=== PATIENT | male | born 1955 | race Caucasian/White ===

== ENCOUNTER 2017-01-27 10:01 | Emergency (ER) | payer OTHER, SELFPAY ==
[~2017-01-27] VITALS: Ht 175.3 cm; Wt 102.3 kg
[2017-01-27 10:01] VITALS: BP 132/79
[2017-01-27] MEDS ORDERED: LISI2.5T3 PO (10:18)
[2017-01-27] MEDS ORDERED: BUSP10TA PO (10:18)
[2017-01-27] MEDS ORDERED: ASPI81TA85 PO (10:18)
[2017-01-27] MEDS ORDERED: DOXY100T PO (10:18)
[2017-01-27] MEDS ORDERED: GLIM4TAB PO (10:19)
--- NOTE | 2017-01-27 10:54 | REP ---
Clinical: Trauma. Technique: Internal rotation, external rotation, and Y view. Findings: Mild age-related cortical irregularity at the acromioclavicular joint is appreciated. There is no evidence for acute fracture or dislocation. Acromioclavicular and glenohumeral joints are intact. A radiodense foreign body is identified in the deltoid likely chronic. Impression: Age-related degenerative changes. Small intramuscular foreign body likely chronic. No acute fracture or dislocation. Signed by Kingsley Soto MD 01/27/2017 10:44 A
[2017-01-27] MEDS ORDERED: ACET30TAB PO (11:41)
== END 2017-01-27 11:51 | disposition home or self-care (01) ==
LOC: M ED 10:01
DX: S46.912A Strain of unspecified muscle, fascia and tendon at shoulder and upper arm level, left arm, initial encounter (principal); X50.0XXA Overexertion from strenuous movement or load, initial encounter; Y92.099 Unspecified place in other non-institutional residence as the place of occurrence of the external cause; Y93.89 Activity, other specified; Y99.9 Unspecified external cause status

== ENCOUNTER → 2017-04-24 | Outpatient (CLI) | payer OTHER ==
[~2017-04-24] MED LIST: ACET30TAB PO; ASPI81TA85 PO; BUSP10TA PO; DOXY100T PO; GLIM4TAB PO; LISI2.5T3 PO
--- NOTE | 2017-04-24 10:02 | REP ---
MRI LEFT SHOULDER: TECHNIQUE: Axial T2 fat sat, gradient echo, sagittal oblique T2 fat sat, coronal oblique T1, T2 fat sat. There is a complete full thickness tear of the supraspinatus tendon with the retraction of the musculotendinous junction approximately 4 cm. Moderate hypertrophic degenerative changes are seen of the acromioclavicular joint with mild downward sloping of the acromion. Acromion is type 2. Biceps tendon is within the bicipital groove. There is no Hill-Sachs deformity. Deltoid muscle demonstrates no abnormal signal. I suspect a tear at the base of the superior labrum anterior aspect to included the portion of the labrum at the biceps labral complex. The other portions of the labrum appear intact. There is no bone marrow edema or occult fracture. There is no paralabral cyst. There is a moderate joint effusion with fluid extending into the subacromial/subdeltoid bursae. IMPRESSION: Complete full thickness tear supraspinatus tendon with retraction of the musculotendinous junction approximately 4 cm. Moderate hypertrophic degenerative changes acromioclavicular joint with mild downward sloping of the acromion. There appears to be a tear at the base of the superior labrum anterior aspect to include the portion of the labrum at the biceps labral attachment. This could be confirmed with an MR arthrogram. Moderate joint effusion with fluid extending into the subacromial/subdeltoid bursae. Signed by Sae Ross MD 04/24/2017 05:32 P
== END ==
LOC: M PLARAD 07:56
PROVIDERS: ATTEND Internal Medicine
DX: M25.512 Pain in left shoulder (principal)

== ENCOUNTER → 2017-12-13 | Outpatient (REF) | payer OTHER ==
[2017-12-13 12:12] LABS: INR 0.91; PROTHROMBIN TIME 12.3 SECONDS (12.4-14.5)
[2017-12-13 12:14] LABS: ANION GAP 5 MEQ/L (8-16); BLOOD UREA NITROGEN 24 MG/DL (7-18); CALCIUM LEVEL 9.6 MG/DL (8.8-10.2); CARBON DIOXIDE LEVEL 29 MEQ/L (21-32); CHLORIDE LEVEL 103 MEQ/L (98-107); CREATININE FOR GFR 1.02 MG/DL (0.70-1.30); GLOMERULAR FILTRATION RATE > 60.0 (>49); GLUCOSE, FASTING 214 MG/DL (70-100); POTASSIUM SERUM 4.3 MEQ/L (3.5-5.1); SODIUM LEVEL 137 MEQ/L (136-145)
== END ==
LOC: M SFHCPLAZ 09:11
DX: Z01.818 Encounter for other preprocedural examination (principal)
CPT/HCPCS: 80048

== ENCOUNTER → 2018-07-13 | Outpatient (CLI) | payer OTHER ==
[~2018-07-13] MED LIST changes: +DICL50TAB PO; +FLORCHW2 PO; -LISI2.5T3 PO; +LISI2.5T5 PO; +METF500T13 PO; +MYSO50TA5 PO; +TYLE1TAB5 PO
[2018-07-13 10:33] LABS: HEMATOCRIT 47.2 % (42.0-52.0); HEMOGLOBIN 16.7 g/dl (13.5-17.5); MEAN CORPUSCULAR HEMOGLOBIN 32.6 pg (27.0-33.0); MEAN CORPUSCULAR HGB CONC 35.4 g/dl (32.0-36.5); MEAN CORPUSCULAR VOLUME 92.2 fl (80.0-96.0); PLATELET COUNT, AUTOMATED 150 10^3/uL (150-450); RED BLOOD COUNT 5.12 10^6/uL (4.30-6.10); WHITE BLOOD COUNT 4.4 10^3/uL (4.0-10.0)
[2018-07-13 10:43] LABS: INR 0.97
[2018-07-13 10:58] LABS: ERYTHROCYTE SEDIMENTATION RATE 5 mm/hr (0-20)
--- NOTE | 2018-07-13 11:30 | REP ---
CHEST X-RAY: TWO VIEWS. HISTORY: Right knee arthritis. FINDINGS: There is blunting of the right lateral and posterior pleural angles suggesting pleuroparenchymal scarring. No free pleural effusion is evident. Lungs are otherwise well inflated and clear. Heart is not enlarged. The aorta slightly tortuous. There are mild degenerative changes in the thoracic spine. There are clips in right upper quadrant of the abdomen consistent with previous cholecystectomy. There are two orthopedic anchors in the humeral head on the left side and, there is advanced glenohumeral osteoarthritis in the right shoulder. IMPRESSION: Chronic-appearing blunting of the pleural angles on the right. Otherwise no acute disease. Electronically Signed by Oli Crenshaw MD 07/13/2018 12:31 P
[2018-07-13 11:55] LABS: ALBUMIN 4.2 GM/DL (3.2-5.2); ALT/SGPT 37 U/L (12-78); BILIRUBIN,TOTAL 0.7 MG/DL (0.2-1.0); BLOOD UREA NITROGEN 29 MG/DL (7-18); CALCIUM LEVEL 9.7 MG/DL (8.8-10.2); CARBON DIOXIDE LEVEL 29 MEQ/L (21-32); CHLORIDE LEVEL 105 MEQ/L (98-107); CREATININE FOR GFR 0.93 MG/DL (0.70-1.30); GLOMERULAR FILTRATION RATE > 60.0 (>49); GLUCOSE, FASTING 230 MG/DL (70-100); POTASSIUM SERUM 4.6 MEQ/L (3.5-5.1); SODIUM LEVEL 140 MEQ/L (136-145); TOTAL PROTEIN 7.5 GM/DL (6.4-8.2)
--- NOTE | 2018-07-14 00:15 | ECGEPIP ---
Stationary ECG Study [facility] Test Date: 2018-07-13 Pat Name: CASSIE MOE Department: Room: - Gender: M Automobile Technician: GABI : 1955 Requested By: Fatou Montes PA-C, LAC Order Number: [id number] Reading MD: Sreekanth Simms Measurements Intervals [place] Rate: 54 P: 39 NC: 169 QRS: -16 QRSD: 102 T: 41 QT: 389 QTc: 370 Interpretive Statements SINUS BRADYCARDIA CONSIDER PRIOR INFERIOR WALL INFARCT NO PRIOR TRACING Electronically Signed On 07-14-2018 0:14:56 EST by Sreekanth Simms
== END ==
LOC: M LAB 10:05 → MERGE 10:05
PROVIDERS: ATTEND Physician Assistant
DX: Z01.818 Encounter for other preprocedural examination (principal); M17.11 Unilateral primary osteoarthritis, right knee

== ENCOUNTER 2018-08-15 10:14 | Inpatient (IN) | payer OTHER ==
--- NOTE | 2018-07-27 22:14 | HPE ---
DATE OF ADMISSION: 08/15/2018 CHIEF COMPLAINT: Right knee pain. HISTORY OF PRESENT ILLNESS: Mr. Velez is a pleasant 63-year-old male with progressively worsening right knee pain and stiffness. He has failed to improve with conservative treatment. He has elected for surgery for his continued symptoms. He has pain with weightbearing activities and his activities of daily living. X-rays of his knee are notable for advanced osteoarthritis of the right knee joint. He has consented for a right total knee arthroplasty by Dr. Ian Fleming. Medical optimization was done by Fatou Montes . ALLERGIES: None. CURRENT MEDICATIONS: - baby aspirin once a day - buspirone 10 mg twice a day - diclofenac sodium 75 mg one twice a day - Januvia one by mouth every day - lisinopril 2.5 mg by mouth at bedtime - metformin 1000 mg one tablet by mouth twice a day - Tylenol PM Extra Strength 500/25 at bedtime - vitamin D 1000 units a day PAST MEDICAL HISTORY: Includes: 1. Diabetes. 2. Hypertension. PAST SURGICAL HISTORY Two right knee arthroscopies. 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 Does not smoke. Does not drink alcohol. FAMILY HISTORY: Noncontributory. REVIEW OF SYSTEMS: This patient denies chest pain, heart palpitations, cough, wheezing, difficulty breathing, and shortness of breath. He denies abdominal pain, nausea, vomiting, diarrhea, or constipation. He denies recent upper respiratory infection or urinary tract infection symptoms. He does complain of persistent pain in the right knee and pain with weightbearing activities in the right knee. PHYSICAL EXAMINATION: GENERAL: He is well-nourished, well-developed in no acute distress, alert male patient. He walks with a moderate limp. There is significant limp favoring the right lower extremity, and he uses bilateral crutches. VITAL SIGNS: He is 69-3/4 inches tall, weighs 219 pounds with a temperature of 97.6, blood pressure 132/64, respirations of 18, pulse of 52. NECK: Supple without adenopathy or jugular venous distension. There were no carotid bruits appreciated. LUNGS: Clear to auscultation without rales or wheeze. HEART: Regular rate and rhythm. ABDOMEN: Bowel sounds were present. EXTREMITIES: Examination of the knee revealed intact skin. He had decreased range of motion secondary to pain and stiffness. The limb was neurovascularly intact. LABORATORY DATA: Protime 13.0, INR 0.97. Chest x-ray: Chronic-appearing blunting of the pleural angles on the right, otherwise no acute disease. EKG showed sinus bradycardia at 54 beats per minute. CBC was within normal limits. Sedimentation rate was 5. Glucose 230, BUN 29, creatinine 0.93, sodium 140, potassium 4.6. IMPRESSION: Symptomatic osteoarthritis of the right knee joint. PLAN: Consented for a right total knee arthroplasty by Dr. Ian Fleming.
[~2018-08-15] VITALS: Ht 175.3 cm; Wt 95.7 kg
[~2018-08-15 10:14] MED LIST changes: +ACETAMINOPHEN 500 MG TAB PO ONE; +BUPIVACAINE HCL 0.25% 10 ML VIAL As Ordered ONE; +BUPIVACAINE LIPOSOME/PF 1.3% 20ML VIAL (13.3MG/ML)(EXPAREL)(C9290 PER1MG) As Ordered ONE; +EPINEPHrine INJ 1 MG/ML 1ML AMP As Ordered ONE; +LIDOCAINE 1% MDV 20ML VIAL SQ PRN; +LR 1,000 ML IV ONE; +TRANEXAMIC ACID 100 MG/ML 10ML VIAL As Ordered ONE; +ceFAZolin 1GM INJ (J0690 PER 500MG) As Ordered ONE
[2018-08-15] MEDS ORDERED: fentaNYL 100 MCG/2 ML INJECTION (J3010) As Ordered ONE ×2 (13:01→14:43)
[2018-08-15] MEDS ORDERED: MIDAZOLAM INJ 2 MG/2 ML VIAL (J2250) As Ordered ONE (13:01)
[2018-08-15] MEDS ORDERED: PROPOFOL 200 MG/20 ML VIAL As Ordered ONE ×4 (13:37→15:31)
[2018-08-15] MEDS ORDERED: LIDOCAINE 2% INJ 100 MG/5 ML SYRINGE As Ordered ONE (13:37)
[2018-08-15] MEDS ORDERED: LIDOCAINE 2% INJ 100 MG/5 ML SDV (FOR ANES.) As Ordered ONE (13:39)
[2018-08-15] MEDS ORDERED: MIDAZOLAM INJ 2 MG/2 ML VIAL (J2250) IV ONE (14:00)
[2018-08-15] MEDS ORDERED: fentaNYL 100 MCG/2 ML INJECTION (J3010) IV ONE (14:00)
[2018-08-15] MEDS ORDERED: ONDANSETRON 4MG/2ML VIAL (J2405) As Ordered ONE (14:46)
[2018-08-15] MEDS ORDERED: ROPIvacaine 0.5% 30 ML INJECTION (J2795 PER 1MG) ONE (14:49)
[2018-08-15] MEDS ORDERED: LIDOCAINE 1% MDV 20ML VIAL ONE (14:49)
[2018-08-15] MEDS ORDERED: dexameTHASONE 10 MG/1 ML VIAL PRES.FREE (J1100) ONE (14:49)
[2018-08-15] MEDS ORDERED: MORPHINE 1MG/ML IN 0.9% NACL 100ML IV BAG As Ordered ONE (15:42)
[2018-08-15] MEDS ORDERED: ONDANSETRON 4MG/2ML VIAL (J2405) IV PRN ×2 (16:00→16:15)
[2018-08-15] MEDS ORDERED: NALBUPHINE HCL 10 MG/ML AMP (J2300) IV PRN (16:00)
[2018-08-15] MEDS ORDERED: MORPHINE 1MG/ML IN 0.9% NACL 100ML IV BAG IV PRN (16:00)
[2018-08-15] MEDS ORDERED: diphenhydrAMINE INJ 50MG/ML VIAL (J1200) IV PRN (16:00)
[2018-08-15] MEDS ORDERED: NALOXONE INJ 0.4 MG/1 ML VIAL (J2310) IV PRN (16:00)
[2018-08-15] MEDS ORDERED: EPIDURAL/PCA KEYS XX PRN (16:00)
[2018-08-15] MEDS ORDERED: PERCOCET 5MG/325MG TAB PO PRN (16:15)
[2018-08-15] MEDS ORDERED: HYDROMORPHONE HCL 0.5 MG/ 0.5 ML SYRINGE (J1170 PER 1) IV PRN (16:15)
[2018-08-15] MEDS ORDERED: fentaNYL 100 MCG/2 ML INJECTION (J3010) IV PRN (16:15)
[2018-08-15] MEDS ORDERED: LR 1,000 ML IV SCH ×2 (16:15→16:30)
[2018-08-15] MEDS ORDERED: FLEET ENEMA PR PRN (16:30)
[2018-08-15] MEDS ORDERED: ACETAMINOPHEN TAB 650MG DOSE (2X325MG) PO PRN (16:30)
--- NOTE | 2018-08-15 16:52 | REP ---
RIGHT KNEE, TWO VIEWS: HISTORY: Postop. The patient is status-post right total knee replacement. There is no acute fracture or dislocation. Subcutaneous air and surgical ce are present in the overlying soft tissue. IMPRESSION:The patient is status-post right total knee replacement. There is anatomic alignment. Electronically Signed by Edison Salinas MD 08/15/2018 04:54 P
[2018-08-15 17:15] VITALS: BP 113/64
[2018-08-15 17:45] VITALS: BP 110/67
[2018-08-15 18:45] VITALS: BP 126/69
[2018-08-15 20:00] VITALS: BP 120/73
[2018-08-15] MEDS ORDERED: PRIMIDONE 50 MG TAB PO SCH (20:45)
[2018-08-15] MEDS ORDERED: HumaLOG INSULIN (NovoLOG) PER UNIT SC SCH (21:00)
[2018-08-15] MEDS ORDERED: GLIMEPIRIDE 2 MG TAB PO SCH (21:00)
[2018-08-15] MEDS ORDERED: metFORMIN (GLUCOPHAGE) 500 MG TAB PO SCH (21:00)
[2018-08-15] MEDS ORDERED: GLUCAGON FOR INJ 1 MG VIAL (J1610) SC PRN (21:45)
[2018-08-15] MEDS ORDERED: DEXTROSE 50% 50 ML SYRINGE IV PRN (21:45)
[2018-08-15] MEDS ORDERED: GLUCOSE 4 GM CHEW TABLET PO PRN (21:45)
[2018-08-15] MEDS: busPIRone 10 MG TAB PO SCH (21:46)
[2018-08-16 06:00] VITALS: BP 117/57
--- NOTE | 2018-08-16 06:14 | CR ---
DATE OF CONSULTATION: 08/15/2018 This is a 63-year-old male with past medical history of osteoarthritis of the right knee, history of hypertension and diabetes, who presented to this hospitalization for elective right total knee replacement done by Dr. Fleming successfully today. Reason for medical consultation is postoperative medical management. Currently he has no pain. He has no chest pain. He has no shortness of breath. He has no abdominal pain. He has no nausea or vomiting or palpitations. No vertigo, headache. He tolerated his diet. PAST MEDICAL HISTORY: Hypertension. Diabetes. Status post right total knee replacement. He has a history of essential tremors. ALLERGIES: No known drug allergies. FAMILY HISTORY: Noncontributory. SOCIAL HISTORY: Patient denies tobacco, alcohol, or elicit drugs. MEDICATIONS HE TAKES AT HOME: - aspirin 81 mg orally daily - Buspirone 10 mg orally twice daily - diclofenac 50 mg orally twice daily - glimepiride 4 mg orally twice daily - lactobacillus one tablet orally twice daily - lisinopril 2.5 mg orally daily - metformin 1000 mg orally twice daily - primidone 50 mg tablets two tablets orally three times a day as needed - Tylenol Extra Strength 500/25 two tablets orally at bedtime as needed REVIEW OF SYSTEMS: Negative of all 10 major systems except what is mentioned in history of present illness. VITALS: Blood pressure 126/69, heart rate is 70 and regular, respiratory rate 16, temperature is 97, oxygen saturation is 98% on room air. Head is atraumatic, normocephalic. Neck is supple, no jugular venous distention. Lungs: Clear to auscultation. S1, S2 audible. No murmurs appreciated. Abdomen is soft, positive bowel sounds. No pedal edema. Skin intact. Clean surgical wound. Neurologic examination: Patient awake, alert, oriented times three. There are no labs to review. IMPRESSION: 1. Right total knee replacement. 2. Hypertension. 3. Diabetes. PLAN: Patient at this time is stable. There is no recommendation at this time as far as medicine is concerned. I will reconcile his medications so he can continue them and resume them. I will defer pain management to Dr. Fleming and at this time the patient is pain free. Will get morning CBC, BMP followup and will continue following this patient along side orthopedics.
[2018-08-16] MEDS ORDERED: ONDANSETRON 4 MG TAB (S0181) PO PRN (06:15)
[2018-08-16] MEDS ORDERED: PERCOCET 5MG/325MG TAB PO PRN ×2 (06:15)
[2018-08-16 06:27] LABS: HEMATOCRIT 40.8 % (42.0-52.0); HEMOGLOBIN 14.3 g/dl (13.5-17.5); MEAN CORPUSCULAR HEMOGLOBIN 31.4 pg (27.0-33.0); MEAN CORPUSCULAR VOLUME 89.5 fl (80.0-96.0); PLATELET COUNT, AUTOMATED 146 10^3/uL (150-450); RED BLOOD COUNT 4.56 10^6/uL (4.30-6.10); WHITE BLOOD COUNT 6.6 10^3/uL (4.0-10.0)
[2018-08-16 06:52] LABS: BLOOD UREA NITROGEN 17 MG/DL (7-18); CALCIUM LEVEL 8.5 MG/DL (8.8-10.2); CARBON DIOXIDE LEVEL 25 MEQ/L (21-32); CHLORIDE LEVEL 104 MEQ/L (98-107); CREATININE FOR GFR 0.84 MG/DL (0.70-1.30); GLOMERULAR FILTRATION RATE > 60.0 (>49); GLUCOSE, FASTING 189 MG/DL (70-100); POTASSIUM SERUM 3.9 MEQ/L (3.5-5.1); SODIUM LEVEL 140 MEQ/L (136-145)
[2018-08-16] MEDS ORDERED: XARE10TA PO (07:29)
[2018-08-16] MEDS ORDERED: PERC5TAB12 PO (07:29)
[2018-08-16] MEDS: HumaLOG INSULIN (NovoLOG) PER UNIT SC SCH ×2 (08:22→13:36)
[2018-08-16] MEDS: busPIRone 10 MG TAB PO SCH (08:23)
[2018-08-16 08:24] VITALS: BP 143/73
[2018-08-16] MEDS ORDERED: SENOKOT S TAB PO SCH (09:00)
[2018-08-16] MEDS ORDERED: MOM 30ML SUSPENSION UDC PO SCH (09:00)
[2018-08-16] MEDS ORDERED: FLUBLOK(EGG FREE)(QUAD)INFLUENZA VACC 0.5ML SYRINGE (90682)18YRS&OLDER IM ONE (09:00)
[2018-08-16] MEDS ORDERED: MIRALAX *UNIT DOSE* 17GM PACKET PO SCH (09:00)
[2018-08-16] MEDS ORDERED: LISINOPRIL *2.5 MG* TAB PO SCH (09:00)
[2018-08-16] MEDS ORDERED: ASPIRIN 81 MG ENTERIC TAB PO SCH (09:00)
[2018-08-16 10:00] VITALS: BP 122/68
--- NOTE | 2018-08-16 10:21 | IPNPDOC ---
Text Note Date of Service The patient was seen on 08/16/18. NOTE Subjective: Patient was seen and examined at the bedside. . Currently, he reports some lightheadedness. Denied any nausea or vomiting. Denies any abdominal pain. He has noted the ability to pass flatus. Denies chest pain, shortness of breath or palpitations. He will be working with physical therapy today Objective: Vitals (See below) General: Lying in bed, no acute distress, comfortable, AAOx3 HEENT: NC, AT CVS: RRR, +S1S2 Lungs: Fair air entry b/l, -w/r/r Abdomen: Soft, ND, NT Extremities: - Edema, - Calf tenderness, right knee in dressing Assessment and plan: Total right knee arthroplasty (POD#1) - Presented to [facility] for an elective right knee arthroplasty - Has been medically cleared for procedure by his primary care provider - Pain control, anticoagulation and physical therapy at the direction of orthopedic surgery HTN - Pressure remains well-controlled - c/w Lisinopril DM2 - c/w ISS DLP - c/w ASA - Currently not on statin Depression - c/w Buspirone Essential tremors - c/w Primidone DVT prophylaxis - Anti-coagulation as per orthopedic team VS,Mata, I+O VS, Mata, I+O Laboratory Tests 08/15/18 10:30 08/16/18 05:41 Red Blood Count 4.56, Mean Corpuscular Volume 89.5, Mean Corpuscular Hemoglobin 31.4, Mean Corpuscular Hemoglobin Concent 35.0, Red Cell Distribution Width 11.9, Calcium Level 8.5 L Vital Signs Date Time Temp Pulse Resp B/P (MAP) Pulse Ox O2 Delivery O2 Flow Rate FiO2 08/16/18 10:02 18 08/16/18 08:24 143/73 08/16/18 06:00 98.8 61 97 Room Air 08/15/18 16:48 3 I&O- Last 24 Hours up to 6 AM 08/16/18 06:00 Intake Total 3160 ml Output Total 2450 ml Balance 710 ml KESHIA SPEAR MD Aug 16, 2018 10:21
--- NOTE | 2018-08-16 11:07 | RO ---
DATE OF PROCEDURE: 08/15/2018 PREOPERATIVE DIAGNOSIS: Right knee osteoarthritis. POSTOPERATIVE DIAGNOSIS: Right knee osteoarthritis. PROCEDURE: Right total knee arthroplasty using a size 7 ATTUNE cruciate retaining femoral component with a size 6 tibial tray with a 6 mm rotating platform polyethylene insert and a 35 mm polyethylene button. All components were cemented. The prosthesis was made by [employer]. SURGEON: Gilbert Fleming MD AIDS SOCIAL WORKER: Shin Ferrer PA-C ANESTHESIA: Right femoral nerve block with a spinal. COMPLICATIONS: None. SPECIMENS: Joint surface. ESTIMATED BLOOD LOSS: 20 mL. COMPLICATIONS: None. DESCRIPTION OF OPERATION: Antibiotics were given intravenously preoperatively. A successful right femoral nerve block and then spinal anesthetic was induced. The tourniquet was placed on the right upper thigh and not inflated. The right lower extremity was then carefully prepped and draped in the usual sterile fashion. After appropriate time out, the tourniquet was inflated. A longitudinal incision was made for medial parapatellar approach to the knee. Bovie cautery was used to coagulate the crossing vessels. We everted the patella and flexed the knee. Subperiosteal dissection around the proximal, medial and lateral tibial plateaus was performed. Drill placed down the center of femoral canal, followed by the intramedullary rickey and distal femoral cutting jig set at a 5 degree valgus cut at 9 mm resection level for a right knee. The distal femoral cut was then performed. AP sizing jig measured for a size 7 and then the 3 degree rotation was dialed in, the pins placed, and the four-in-one block applied, anterior, posterior and chamfer cuts performed. We then exposed the proximal tibia, used the extramedullary alignment jig to estimate being parallel to the mechanical axis, referenced off the medial tibial condyle. At 4 mm resection level, the block was pinned in position, secondary check of extramedullary rickey confirmed we appeared to be parallel to the mechanical axis. Proximal tibial osteotomy was then performed. A lamina retail coverage merchandiser lead was placed medially and performed a completion lateral meniscectomy and debridement of the posterolateral osteophytes. I then placed the lamina retail coverage merchandiser lead laterally and performed a completion medial meniscectomy and debridement of the posteromedial osteophytes. Space block, 6 mm, had good fit and symmetry to varus valgus stress testing both in flexion and in extension. We exposed the proximal tibia, sized for a 6 tibial tray which was pinned into position followed by the reamer and broached, followed by the trial poly, and the trial femoral component. The notch plasty was performed using the jib prior to placement of the femoral component. The knee was brought into extension, the patella was everted, patellar osteotomy performed, 35 sized component was selected, the lug holes drilled, trial placed and patellofemoral tracking was anatomic. We drilled the lug holes for the femur, then removed all the trial components, and placed Exparel in the subperiosteal tissues around the distal femur and the proximal tibia. It is noteworthy that he had essentially no cartilage at all on the medial femoral condyle despite his plain film radiographs. He had significant cartilage loss. Mr. Ferrer then mixed the cement on the back table as I prepared the bony surfaces for cementing with a copious amount of pulsatile lavage irrigant solution. Mr. Ferrer was also critical to the success of this difficult surgery by helping to manipulate the knee as needed, helping to apply appropriate soft tissue retraction so I could perform the operation smoothly, efficiently and safely, helped to mix the cement, and helped to close the wound amongst many other tasks. We then cemented the tibial tray and removed excess cement, placed the polyethylene then cemented the femoral component and removed excess cement, then brought the knee into extension then cemented the patellar button and removed excess cement and held the prosthesis with a clamp with the knee in full extension as we waited for the cement to harden. As we were doing that, we copiously irrigated out the knee joint with pulsatile lavage irrigant solution and then tranexamic acid. We then closed the arthrotomy with #1 PDS sutures at the apex and the medial parapatellar area and then a running #1 STRATAFIX was used to close the arthrotomy. Tourniquet was then released. We irrigated and closed the deep subdermal tissues with interrupted #2-0 PDS sutures. Skin was closed with ce, covered by Optifoam and dry sterile bulky dressing. He was then transferred to the recovery room in stable condition. There were no intraoperative complications.
[2018-08-16] MEDS ORDERED: RIVAROXABAN 10 MG TAB (XARELTO) PO SCH (18:00)
--- NOTE | 2018-08-17 13:58 | DSES ---
DATE OF ADMISSION: 08/15/2018 DATE OF DISCHARGE: 08/16/2018 HISTORY OF PRESENT ILLNESS: This is a pleasant 63-year-old male with continuing symptomatic right knee osteoarthritis. He consented for a right total knee arthroplasty per Dr. Ian Fleming. Medical optimization per Fatou Montes. X-rays were consistent with advanced osteoarthritis. OPERATION PERFORMED: Right total knee arthroplasty. HOSPITAL COURSE: The patient uneventfully underwent right total knee arthroplasty under spinal with a right femoral nerve block. Our hospital team felt he could be discharged on 08/16/2018 with the following instructions. Weightbearing as tolerated with walker, Percocet as needed, diet is regular, thromboembolic deterrent stockings (TEDS) times 30 days, deep vein thrombosis (DVT) prophylaxis per protocol, and Optifoam dressing change in 3-4 days time. Followup at orthopedic clinic in 10-12 days for wound check, staple removal, sooner with difficulties.
== END 2018-08-16 13:46 | disposition home or self-care (01) | DRG 302 ==
LOC: M OR 10:14 → EDUNIT# 14:15 → MERGE 14:15 → M MS5PR 16:55
PROVIDERS: ADMIT Orthopaedic Surgery; ATTEND Orthopaedic Surgery
PROC: 0SRC0JZ Replacement of Right Knee Joint with Synthetic Substitute, Open Approach (ICD-10-PCS; principal; 2018-08-15 13:15)
DX: M17.11 Unilateral primary osteoarthritis, right knee (principal); I10 Essential (primary) hypertension; E11.9 Type 2 diabetes mellitus without complications; F41.9 Anxiety disorder, unspecified; N52.9 Male erectile dysfunction, unspecified; R26.89 Other abnormalities of gait and mobility; G25.0 Essential tremor; F32.9 Major depressive disorder, single episode, unspecified; Z79.82 Long term (current) use of aspirin; Z79.84 Long term (current) use of oral hypoglycemic drugs; Z87.891 Personal history of nicotine dependence; Z79.899 Other long term (current) drug therapy

== ENCOUNTER 2023-10-31 07:23 | Day surgery (SDC) | payer MEDICARE ==
[~2023-10-31] VITALS: Ht 175.3 cm; Wt 98.9 kg
[~2023-10-31 07:23] MED LIST changes: +ACET-1349 PO; +ACET-716 PO; -ACET30TAB PO; -ACETAMINOPHEN 500 MG TAB PO ONE; +ASPI81CH33 PO; -ASPI81TA85 PO; +ASPI81TA86 PO; -BUPIVACAINE HCL 0.25% 10 ML VIAL As Ordered ONE; -BUPIVACAINE LIPOSOME/PF 1.3% 20ML VIAL (13.3MG/ML)(EXPAREL)(C9290 PER1MG) As Ordered ONE; -EPINEPHrine INJ 1 MG/ML 1ML AMP As Ordered ONE; -GLIM4TAB PO; +GLIM4TAB5 PO; +LANTINJ4 SC; -LIDOCAINE 1% MDV 20ML VIAL SQ PRN; -LISI2.5T5 PO; +LISI2.5T9 PO; -LR 1,000 ML IV ONE; +NS 1,000 ML IV ONE; +PERC5TAB12 PO; +THERTAB52 PO; -TRANEXAMIC ACID 100 MG/ML 10ML VIAL As Ordered ONE; +VITA100093 PO; +XARE10TA PO; -ceFAZolin 1GM INJ (J0690 PER 500MG) As Ordered ONE
[2023-10-31] MEDS ORDERED: propofoL 200 MG/20 ML VIAL As Ordered ONE (08:41)
[2023-10-31 08:48] VITALS: TEMP 98.3
[2023-10-31 09:10] VITALS: BP 126/72; O2SAT 96
== END 2023-10-31 09:19 | disposition home or self-care (01) ==
LOC: M OPP 07:23
PROVIDERS: ATTEND Internal Medicine Gastroenterology
DX: Z12.11 Encounter for screening for malignant neoplasm of colon (principal); D12.2 Benign neoplasm of ascending colon; K64.8 Other hemorrhoids; K57.30 Diverticulosis of large intestine without perforation or abscess without bleeding; E11.9 Type 2 diabetes mellitus without complications; I10 Essential (primary) hypertension; Z87.891 Personal history of nicotine dependence; Z79.1 Long term (current) use of non-steroidal anti-inflammatories (NSAID); Z79.4 Long term (current) use of insulin; Z79.82 Long term (current) use of aspirin; Z79.899 Other long term (current) drug therapy